=== PATIENT | male | born 1950 | race Caucasian/White ===

== ENCOUNTER 2019-08-24 12:30 | Inpatient (IN) | payer MEDICARE ==
--- NOTE | 2019-08-30 17:55 | HP ---
HISTORY OF PRESENT ILLNESS: The patient is a 68-year-old male with a greater than 6-month history of progressive pain in the left knee, which began after building his house and being quite active, but no specific injury. He has had progressive pain despite restriction of activities and previous Synvisc injection. The pain is now interfering with day-to-day activities including walking, getting dressed, and sleeping. PAST MEDICAL HISTORY: The patient had open-heart surgery in 1995 and stent placement in 2003 and currently takes Plavix, which he has stopped 1 week prior to anticipated surgery. He is followed by Dr. Micheline Mar in [place]. He also has history of pulmonary hypertension, asthma, depression. 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 He is considering total ankle replacement in the future. He also does have type 2 diabetes. CURRENT MEDICATIONS: Include, 1. Albuterol. 2. Plavix. 3. Hydrocodone. 4. Lisinopril. 5. Lyrica. 6. Asmanex. 7. Lorazepam. 8. Metformin. 9. Ranexa. ALLERGIES: HE HAS NO KNOWN ALLERGIES. FAMILY HISTORY: Otherwise unremarkable. SOCIAL HISTORY: Otherwise unremarkable. REVIEW OF SYSTEMS: Otherwise unremarkable. PHYSICAL EXAMINATION: GENERAL: Healthy heavyset male. HEENT: Unremarkable. NECK: Supple. CHEST: Clear. HEART: Regular rate and rhythm. ABDOMEN: Soft, nontender. RECTAL: Deferred. GENITAL: Deferred. EXTREMITIES: Pertinent findings the left knee, there is puffiness but no definite effusion. There is moderate varus. There is tenderness and crepitus over the medial joint line. Range of motion is 0 to 115 degrees. There is a left antalgic gait. No palpable distal pulses. NEUROVASCULAR: Intact. DIAGNOSTIC STUDIES: X-rays of the left knee reveal [id number] collapse medially. IMPRESSION: 1. Degenerative arthritis of left knee. 2. Atherosclerotic cardiovascular disease. 3. Hypertension. 4. Adult onset diabetes. PLAN: Left total knee replacement. The nature of the surgery, length of recovery, potential complications such as infection, loss of motion, incomplete relief, delayed wound healing, neurovascular injury, thromboembolic phenomena, possible transfusion, need for revision have been discussed in detail. Job ID: [id number]
[2019-08-31 09:23] VITALS: BMI 42.2
[2019-09-04] MEDS ORDERED: Sodium Chloride 0.9% 100 ML ONE (05:54)
[2019-09-04] MEDS ORDERED: Tranexamic Acid 1,000 MG/10 ML VIAL ONE ×2 (05:54→09:08)
[2019-09-04] MEDS ORDERED: Midazolam HCl 2 mg/2 ml Vial ONE (06:20)
[2019-09-04] MEDS ORDERED: Lidocaine 1% (PF) 30 ML VIAL ONE (06:20)
[2019-09-04] MEDS ORDERED: Fentanyl 100 MCG/2 ML VIAL ONE ×4 (06:20→10:16)
[2019-09-04] MEDS ORDERED: Ropivacaine 0.2% HCl/PF 20 ML ONE (06:20)
[2019-09-04] MEDS ORDERED: Lidocaine 1% w/Epinephrine 1:100K 20 ML VIAL ONE (06:45)
[2019-09-04] MEDS ORDERED: Bupivacaine/Epinephrine 0.25% 30 ML VIAL ONE (06:45)
[2019-09-04] MEDS ORDERED: Promethazine HCl 25 MG/ML VIAL IM PRN ×2 (07:10→08:17)
[2019-09-04] MEDS ORDERED: Ropivacaine HCl/PF 250 ML in Premix Bag 1 BAG NERVE BLCK SCH (07:10)
[2019-09-04] MEDS ORDERED: traMADol HCl 50 MG TAB PO PRN ×3 (07:10→09:12)
[2019-09-04] MEDS ORDERED: Ondansetron PF 4 MG/2 ML Vial IVP PRN ×2 (07:10→09:12)
[2019-09-04] MEDS ORDERED: Zolpidem Tartrate 5 MG TAB PO PRN ×2 (07:10→09:12)
[2019-09-04] MEDS ORDERED: Fentanyl 100 MCG/2 ML VIAL IV PRN (07:10)
[2019-09-04] MEDS ORDERED: Promethazine HCl 25 MG/ML VIAL SLOW IVP PRN ×2 (08:17→09:12)
[2019-09-04] MEDS ORDERED: Ondansetron HCl/PF 4 MG/2 ML Vial IVP PRN (08:17)
[2019-09-04] MEDS ORDERED: Fentanyl 100 MCG/2 ML VIAL SLOW IVP PRN ×2 (09:12)
[2019-09-04] MEDS ORDERED: Acetaminophen 325 MG TAB PO PRN (09:12)
[2019-09-04] MEDS ORDERED: PROVENTIL INHALER 6.7 G (200 INHALATIONS) INH PRN (09:12)
[2019-09-04] MEDS ORDERED: HYDROcodone/Acetaminophen 10/325 mg Tablet PO PRN ×2 (09:12)
[2019-09-04] MEDS ORDERED: Tranexamic Acid 1,000 MG in Sodium Chloride 0.9% 100 ML IVPB SCH ×2 (09:12→09:15)
[2019-09-04] MEDS ORDERED: Nitroglycerin 0.4 MG TAB (25 Tab Bottle) SL PRN (09:12)
[2019-09-04] MEDS ORDERED: diphenhydrAMINE 25 MG CAP PO PRN (09:12)
--- NOTE | 2019-09-04 09:56 | RAD ---
Exam:2 views left knee HISTORY: Arthroplasty COMPARISON: None FINDINGS: 2 views left knee compatible with a total left knee arthroplasty. No malalignment. Expected postoperative changes in the soft tissues. IMPRESSION: Findings compatible with left knee arthroplasty.
[2019-09-04] MEDS ORDERED: Ketorolac Tromethamine 30 MG/ML VIAL IVP SCH ×2 (12:00)
--- NOTE | 2019-09-04 12:35 | OP ---
DATE OF PROCEDURE: 09/04/2019 HEAD SAMPLER: Eliane Veronica PA-C PREOPERATIVE DIAGNOSIS: Degenerative arthritis, left knee. POSTOPERATIVE DIAGNOSIS: Degenerative arthritis, left knee. PROCEDURE PERFORMED: Left total knee replacement with computer-assisted navigation with cemented [place] [employer] components (#7 femoral component, #7 primary tibial baseplate with 11 mm CS plastic insert, and A35 all-plastic patellar component). ANESTHESIA: General plus adductor canal and sciatic nerve blocks. DESCRIPTION OF PROCEDURE: After satisfactory anesthesia was induced in supine position, sequential compression device was placed on the nonoperative leg throughout the procedure. The left leg was then prepped and draped in routine sterile fashion. The leg was elevated and exsanguinated with an Esmarch bandage and the tourniquet inflated to 300 mmHg. A gently curved medial parapatellar incision was made, carried down through the subcutaneous tissues. Bleeding points were controlled with Bovie cautery. Medial parapatellar arthrotomy was performed. Patella was dislocated laterally and portion of the fat pad were excised for exposure. There was marked degenerative arthritis of the knee especially medially with large areas of exposed bone. Meniscal remnants and osteophytes were removed. Using the appropriate guides and the [employer] pinless navigation system, the distal femoral and proximal tibial articular surfaces were excised with an oscillating saw. They accept the trial components. It was felt that #7 femoral component and #7 primary tibial baseplate with 11 mm CS plastic insert gave appropriate size, fit, stability, and correction of the preoperative deformity. The patellar articular surface was excised to accept an all-plastic A35 patellar component. There was good range of motion and good patellar tracking. The trial components were removed. The knee was copiously irrigated with pulsatile lavage and the bony surfaces thoroughly cleaned and dried. The permanent components were then cemented in a single stage using one package of cement premixed with 1 g of tobramycin powder. Excess cement was removed. There was again good fit and stability of the components. The knee was again copiously irrigated. The medial retinaculum and quadriceps mechanism was closed with interrupted #2 Vicryl and a running #2 Quill. The skin was infiltrated with 30 mL of 0.25% Marcaine with epinephrine. Subcutaneous tissues were closed with a running 0 Quill suture and the skin closed with running subcuticular 3-0 Monoderm and SurgiSeal skin adhesive. A sterile bulky compressive dressing was applied. The tourniquet deflated for 77 minutes. The foot promptly pinked up. Sequential compression device was applied to his operated leg. He was awakened, taken to the recovery room in stable condition. There were no apparent intraoperative complications. The estimated blood loss was less than 100 mL. Job ID: [id number]
[2019-09-04] MEDS ORDERED: Ropivacaine 0.5% HCl/PF (150 MG/30 ML VIAL) ONE (14:17)
[2019-09-04] MEDS ORDERED: Ondansetron PF 4 MG/2 ML Vial ONE (14:28)
[2019-09-04] MEDS ORDERED: Ketorolac Tromethamine 30 MG/ML VIAL ONE (14:28)
[2019-09-04] MEDS ORDERED: PROPOFOL 200 MG/20 ML VIAL ONE (14:28)
[2019-09-04] MEDS ORDERED: Lidocaine 1% PF 5 ML VIAL ONE (14:28)
--- NOTE | 2019-09-04 14:59 | PDOC.HOSPP ---
- Subjective Encounter Date: 09/04/19 Encounter Time: 14:45 Subjective: Consult for medical mgmt s/p L TKR today. Hx of DM, HTN, CAD and Asthma. No new complaints currently. Ambulated with PT short distance. No CP, SOB or pain. Reviewed all hx, labs, EKG's, radiology. - Objective Vital Signs & Weight: Vital Signs (12 hours) Temp Pulse Resp BP Pulse Ox 09/04/19 11:10 97.0 F L 59 L 20 146/74 H 97 Weight Weight 320 lb Additional Labs: Laboratory Tests 08/31/19 13:03 Sodium 138 Potassium 3.6 Chloride 98 Carbon Dioxide 27 Anion Gap 17 BUN 13 Creatinine 0.89 Estimated GFR (MDRD) 85 Glucose 253 H Calcium 9.4 EKG Reviewed by me: Yes (NSR, no acute changes) - Exam General Appearance: NAD, awake alert Eye: PERRL, anicteric sclera ENT: normocephalic atraumatic, no oropharyngeal lesions Neck: supple, symmetric, no JVD, no thyromegaly, no lymphadenopathy Heart: RRR, no murmur, no gallops, no rubs, normal peripheral pulses Respiratory: CTAB, no wheezes, no rales, no ronchi, normal chest expansion Gastrointestinal: soft, non-tender, non-distended, normal bowel sounds Extremities - other findings: L knee with surgical dressing in place, + edema Skin: normal turgor Neurological: cranial nerve grossly intact, no new deficit Musculoskeletal: normal tone, normal strength Psychiatric: normal affect, A&O x 3 Hosp A/P (1) HTN (hypertension) Code(s): I10 - ESSENTIAL (PRIMARY) HYPERTENSION Status: Chronic Qualifiers: Hypertension type: essential hypertension Qualified Code(s): I10 - Essential (primary) hypertension Plan: Resume home BP regimen, titrate to optimal response (2) Diabetes mellitus type II, uncontrolled Code(s): E11.65 - TYPE 2 DIABETES MELLITUS WITH HYPERGLYCEMIA Status: Chronic Plan: Add ISS, resume home DM regimen, serial Accuchecks, ADA (3) CAD (coronary artery disease) Code(s): I25.10 - ATHSCL HEART DISEASE OF [place] CORONARY ARTERY W/O ANG PCTRS Status: Chronic Plan: Chronic and stable, resume Plavix, Ranexa (4) Asthma Code(s): J45.909 - UNSPECIFIED ASTHMA, UNCOMPLICATED Status: Chronic Qualifiers: Asthma severity: moderate Plan: Continue home Albuterol, Singulair (5) Status post total left knee replacement Code(s): Z96.652 - PRESENCE OF LEFT ARTIFICIAL KNEE JOINT Status: Acute Plan: Pain control, DVT ppx, OOB with PT, ? inpt rehab - Plan plan discussed w/ family, continue antibiotics, PT/OT, long term care social worker, incentive spirometry, out of bed/ambulate, DVT proph w/SCDs Stable currently Continue home BP regimen Add ISS, serial accuchecks OOB/PT Incentive spirometry DVT ppx AM lab: CBC Thank you for the consult. Will continue to follow with primary service.
[2019-09-04] MEDS ORDERED: Dextrose 5% in Water 1,000 ML IV PRN (15:03)
[2019-09-04] MEDS ORDERED: Dextrose 50% Abboject 50 ML SYRINGE SLOW IVP PRN (15:03)
[2019-09-04] MEDS ORDERED: HumaLOG 300 UNITS/3 ML VIAL SC PRN (15:03)
[2019-09-04] MEDS: Ketorolac Tromethamine 30 MG/ML VIAL IVP SCH ×2 (15:22→21:05)
[2019-09-04] MEDS: Sodium Chloride 0.9% 1,000 ML IV SCH (15:22)
[2019-09-04] MEDS: CEFAZOLIN 2 GM in Premix Bag 1 BAG IVPB SCH ×2 (15:23→23:46)
[2019-09-04] MEDS: HumaLOG 300 UNITS/3 ML VIAL SC PRN (17:06)
[2019-09-04] MEDS: HYDROcodone/Acetaminophen 10/325 mg Tablet PO PRN (18:22)
[2019-09-04] MEDS: Pregabalin 50 MG CAP PO SCH (21:03)
[2019-09-04] MEDS: Ezetimibe 10 MG TAB PO SCH (21:04)
[2019-09-04] MEDS: Atorvastatin Calcium 40 MG TAB PO SCH (21:04)
[2019-09-04] MEDS: Aspirin 81 mg Enteric Coated Tablet PO SCH (21:04)
[2019-09-04] MEDS: Alogliptin 25 MG TAB PO SCH (21:04)
[2019-09-04] MEDS: metFORMIN XR 500 MG TAB PO SCH (21:04)
[2019-09-05] MEDS: Ketorolac Tromethamine 30 MG/ML VIAL IVP SCH ×4 (03:01→20:42)
[2019-09-05] MEDS: Sodium Chloride 0.9% 1,000 ML IV SCH ×3 (04:40→17:08)
[2019-09-05 04:48] LABS: Hemoglobin 12.8 g/dL (14.0-18.0); Mean Corpuscular HGB CONC 33.7 g/dL (32.0-36.0); Mean Corpuscular Hemoglobin 33.2 pg (27.0-31.0); Mean Corpuscular Volume 98.5 fL (78.0-98.0); Mean Platelet Volume 8.5 fL (7.4-10.4); Platelet Count 149 thou/uL (130-400); RBC Distribution Width 12.3 % (11.5-14.5); Red Blood Cell (RBC) Count 3.85 mill/uL (4.70-6.10); White Blood Cell (WBC) Count 7.9 thou/uL (4.8-10.8)
[2019-09-05] MEDS: HumaLOG 300 UNITS/3 ML VIAL SC PRN (06:19)
[2019-09-05] MEDS: Pregabalin 50 MG CAP PO SCH ×2 (08:33→20:46)
[2019-09-05] MEDS: metFORMIN XR 500 MG TAB PO SCH ×2 (08:34→20:43)
[2019-09-05] MEDS: Alogliptin 25 MG TAB PO SCH ×2 (08:35→20:46)
[2019-09-05] MEDS: Furosemide 40 MG TAB PO SCH (08:35)
[2019-09-05] MEDS: Cholecalciferol (Vitamin D3) 400 UNITS TAB PO SCH (08:36)
[2019-09-05] MEDS: Senokot S 8.6-50 MG TAB PO SCH ×2 (08:36→20:43)
[2019-09-05] MEDS: Aspirin 81 mg Enteric Coated Tablet PO SCH ×2 (08:36→20:42)
[2019-09-05] MEDS: Lisinopril 5 MG TAB PO SCH (08:36)
[2019-09-05] MEDS: Montelukast Sodium 10 mg Tablet PO SCH (08:36)
[2019-09-05] MEDS: Multivitamin W/ Minerals 1 TAB PO SCH (08:37)
[2019-09-05] MEDS: HYDROcodone/Acetaminophen 10/325 mg Tablet PO PRN ×2 (10:55→17:16)
--- NOTE | 2019-09-05 13:14 | PDOC.HOSPP ---
- Subjective Encounter Date: 09/05/19 Encounter Time: 10:14 Subjective: 68 y/o male with Evangelina on CPAP, HTN, CAD and HLD being followed for medical mgt after L TKR. No complaqint. Ambulating with PT. - Objective Vital Signs & Weight: Vital Signs (12 hours) Temp Pulse Resp BP Pulse Ox 09/05/19 08:36 79 09/05/19 07:40 93 L 09/05/19 07:28 99.3 F 79 18 120/74 93 L 09/05/19 03:20 99.4 F 83 18 148/75 H 95 Weight Admit Weight 320 lb Weight 320 lb I&O: 09/04/19 09/05/19 09/06/19 06:59 06:59 06:59 Intake Total 1999 Balance 1999 Result Diagrams: 09/05/19 04:13 Additional Labs: Accuchecks 09/05/19 09/05/19 09/04/19 10:39 05:14 20:42 POC Glucose 171 H 167 H 165 H 09/04/19 16:59 POC Glucose 174 H Hospitalist ROS - Medication Medications: Active Medications Generic Name Dose Route Start Last Admin Trade Name Freq PRN Reason Stop Dose Admin Hydrocodone Bitart/Acetaminophen 1 tab 09/04/19 07:10 09/04/19 18:22 [place] 10/325 PO 1 tab Q4H PRN Administration Pain (1-3) Hydrocodone Bitart/Acetaminophen 2 tab 09/04/19 07:10 09/05/19 10:55 [place] 10/325 PO 2 tab Q4H PRN Administration PAIN (4-6) Alogliptin Benzoate 25 mg 09/04/19 21:00 09/05/19 08:35 Alogliptin PO 25 mg BID JOAN Administration Aspirin 81 mg 09/04/19 21:00 09/05/19 08:36 Ecotrin PO 81 mg BID JOAN Administration Atorvastatin Calcium 80 mg 09/04/19 21:00 09/04/19 21:04 Lipitor PO 80 mg HS JOAN Administration Cholecalciferol 400 units 09/05/19 09:00 09/05/19 08:36 Vitamin D PO 400 units DAILY JOAN Administration Ezetimibe 10 mg 09/04/19 21:00 09/04/19 21:04 Zetia PO 10 mg HS JOAN Administration Furosemide 40 mg 09/05/19 09:00 09/05/19 08:35 Lasix PO 40 mg QAM JOAN Administration Glipizide 10 mg 09/04/19 21:00 09/05/19 08:35 Glucotrol Xl PO 10 mg BID JOAN Administration Ropivacaine 250 ml/ Device 250 mls @ 0 mls/hr 09/04/19 07:10 09/05/19 11:15 NERVE BLCK 250 mls INF JOAN Administration As Directed Sodium Chloride 1,000 mls @ 100 mls/hr 09/04/19 09:12 09/05/19 06:42 Normal Saline 0.9% IV Not Given .Q10H JOAN Insulin Human Lispro 0 units 09/04/19 15:03 09/05/19 06:19 Humalog SC 2 unit .MODERATE SLIDING SC PRN Administration Moderate Correctional Scale Iron/Minerals/Multivitamins 1 tab 09/05/19 09:00 09/05/19 08:37 Theragran M PO 1 tab DAILY JOAN Administration Ketorolac Tromethamine 15 mg 09/04/19 15:00 09/05/19 08:29 Toradol IVP 09/06/19 09:01 15 mg 0300,0900,1500,2100 JOAN Administration Lisinopril 5 mg 09/05/19 09:00 09/05/19 08:36 Zestril PO 5 mg QAM JOAN Administration Metformin HCl 1,000 mg 09/04/19 21:00 09/05/19 08:34 Glucophage Xr PO 1,000 mg BID JOAN Administration Montelukast Sodium 10 mg 09/05/19 09:00 09/05/19 08:36 Singulair PO 10 mg QAM JOAN Administration Pregabalin 100 mg 09/04/19 21:00 09/05/19 08:33 Lyrica PO 100 mg BID JOAN Administration Ranolazine 500 mg 09/04/19 21:00 09/05/19 08:37 Ranexa PO 500 mg BID JOAN Administration Senna/Docusate Sodium 2 tab 09/05/19 09:00 09/05/19 08:36 Senokot S PO 2 tab BID JOAN Administration Sodium Chloride 10 ml 09/04/19 09:12 09/05/19 08:30 Flush - Normal Saline IVF 10 ml PRN PRN Administration Saline Flush - Exam General Appearance: awake alert General - other findings: obese Eye: anicteric sclera ENT: normocephalic atraumatic, moist mucosa Neck: supple, symmetric Heart: RRR Respiratory: no wheezes, no rales, no ronchi, normal chest expansion Gastrointestinal: soft, non-tender, non-distended, normal bowel sounds Gastrointestinal - other findings: obese Extremities: no cyanosis Extremities - other findings: trace to mild left leg edema. Left knee/leg in a splint Neurological: cranial nerve grossly intact, no focal deficits Psychiatric: normal affect, A&O x 3 Hosp A/P (1) Acute blood loss anemia Code(s): D62 - ACUTE POSTHEMORRHAGIC ANEMIA Status: Acute (2) CAD (coronary artery disease) Code(s): I25.10 - ATHSCL HEART DISEASE OF [place] CORONARY ARTERY W/O ANG PCTRS Status: Chronic (3) HLD (hyperlipidemia) Code(s): E78.5 - HYPERLIPIDEMIA, UNSPECIFIED Status: Acute (4) EVANGELINA on CPAP Code(s): G47.33 - OBSTRUCTIVE SLEEP APNEA (ADULT) (PEDIATRIC); Z99.89 - DEPENDENCE ON OTHER ENABLING MACHINES AND DEVICES Status: Acute (5) Morbid obesity with BMI of 40.0-44.9, adult Code(s): E66.01 - MORBID (SEVERE) OBESITY DUE TO EXCESS CALORIES; Z68.41 - BODY MASS INDEX (BMI) 40.0-44.9, ADULT Status: Acute (6) Status post total left knee replacement Code(s): Z96.652 - PRESENCE OF LEFT ARTIFICIAL KNEE JOINT Status: Acute (7) Asthma Code(s): J45.909 - UNSPECIFIED ASTHMA, UNCOMPLICATED Status: Chronic Qualifiers: Asthma severity: moderate (8) Diabetes mellitus type II, uncontrolled Code(s): E11.65 - TYPE 2 DIABETES MELLITUS WITH HYPERGLYCEMIA Status: Chronic (9) HTN (hypertension) Code(s): I10 - ESSENTIAL (PRIMARY) HYPERTENSION Status: Chronic Qualifiers: Hypertension type: essential hypertension Qualified Code(s): I10 - Essential (primary) hypertension - Plan Continue current medications. Get H/H and renal function in the am.
[2019-09-05] MEDS: Atorvastatin Calcium 40 MG TAB PO SCH (20:42)
[2019-09-05] MEDS: Ezetimibe 10 MG TAB PO SCH (20:42)
[2019-09-06] MEDS: Sodium Chloride 0.9% 1,000 ML IV SCH ×2 (00:07→11:30)
[2019-09-06] MEDS: HYDROcodone/Acetaminophen 10/325 mg Tablet PO PRN ×2 (03:33→12:06)
[2019-09-06] MEDS: Ketorolac Tromethamine 30 MG/ML VIAL IVP SCH ×2 (03:34→08:44)
[2019-09-06 04:31] LABS: Hemoglobin 12.6 g/dL (14.0-18.0)
[2019-09-06 04:50] LABS: Anion Gap 12 mmol/L (10-20); BUN (Urea Nitrogen) 10 mg/dL (8.4-25.7); Calc. Creatinine Clearance 181 mL/min (70-130); Calcium 8.7 mg/dL (7.8-10.44); Carbon Dioxide 26 mmol/L (23-31); Chloride 101 mmol/L (98-107); Estimated GFR-MDRD Greater than 90; Glucose 163 mg/dL (80-115); Potassium 3.6 mmol/L (3.5-5.1); Sodium 135 mmol/L (136-145)
[2019-09-06] MEDS: HumaLOG 300 UNITS/3 ML VIAL SC PRN ×2 (06:31→12:06)
[2019-09-06] MEDS: Pregabalin 50 MG CAP PO SCH (08:45)
[2019-09-06] MEDS: metFORMIN XR 500 MG TAB PO SCH (08:45)
[2019-09-06] MEDS: Senokot S 8.6-50 MG TAB PO SCH (08:46)
[2019-09-06] MEDS: Furosemide 40 MG TAB PO SCH (08:46)
[2019-09-06] MEDS: Montelukast Sodium 10 mg Tablet PO SCH (08:46)
[2019-09-06] MEDS: Aspirin 81 mg Enteric Coated Tablet PO SCH (08:47)
[2019-09-06] MEDS: Lisinopril 5 MG TAB PO SCH (08:47)
[2019-09-06] MEDS: Cholecalciferol (Vitamin D3) 400 UNITS TAB PO SCH (08:47)
[2019-09-06] MEDS: Multivitamin W/ Minerals 1 TAB PO SCH (08:47)
[2019-09-06] MEDS: Alogliptin 25 MG TAB PO SCH (08:48)
--- NOTE | 2019-09-06 14:22 | PDOC.HOSPP ---
- Subjective Encounter Date: 09/06/19 Encounter Time: 11:21 Subjective: 68 y/o male with Evangelina on CPAP, HTN, CAD and HLD being followed for medical mgt after L TKR. No new complaint - Objective Vital Signs & Weight: Vital Signs (12 hours) Temp Pulse Resp BP BP Pulse Ox 09/06/19 12:00 99.8 F H 80 24 H 147/75 H 93 L 09/06/19 08:47 77 149/71 H 09/06/19 07:55 98.1 F 77 18 107/68 96 09/06/19 03:15 99.8 F H 85 20 163/81 H 96 Weight Admit Weight 320 lb Weight 320 lb I&O: 09/05/19 09/06/19 09/07/19 06:59 06:59 06:59 Intake Total 1999 1220 386 Balance 1999 1220 386 Result Diagrams: 09/06/19 04:18 09/06/19 04:18 Additional Labs: Accuchecks 09/06/19 09/06/19 09/05/19 10:24 06:31 20:43 POC Glucose 158 H 178 H 137 H 09/05/19 15:59 POC Glucose 134 H Hospitalist ROS - Medication Medications: Active Medications Generic Name Dose Route Start Last Admin Trade Name Freq PRN Reason Stop Dose Admin Hydrocodone Bitart/Acetaminophen 1 tab 09/04/19 07:10 09/05/19 17:16 [place] 10/325 PO 1 tab Q4H PRN Administration Pain (1-3) Hydrocodone Bitart/Acetaminophen 2 tab 09/04/19 07:10 09/06/19 12:06 [place] 10/325 PO 2 tab Q4H PRN Administration PAIN (4-6) Alogliptin Benzoate 25 mg 09/04/19 21:00 09/06/19 08:48 Alogliptin PO 25 mg BID JOAN Administration Aspirin 81 mg 09/04/19 21:00 09/06/19 08:47 Ecotrin PO 81 mg BID JOAN Administration Atorvastatin Calcium 80 mg 09/04/19 21:00 09/05/19 20:42 Lipitor PO 80 mg HS JOAN Administration Cholecalciferol 400 units 09/05/19 09:00 09/06/19 08:47 Vitamin D PO 400 units DAILY JOAN Administration Ezetimibe 10 mg 09/04/19 21:00 09/05/19 20:42 Zetia PO 10 mg HS JOAN Administration Furosemide 40 mg 09/05/19 09:00 09/06/19 08:46 Lasix PO 40 mg QAM JOAN Administration Glipizide 10 mg 09/04/19 21:00 09/06/19 08:48 Glucotrol Xl PO 10 mg BID JOAN Administration Ropivacaine 250 ml/ Device 250 mls @ 0 mls/hr 09/04/19 07:10 09/05/19 11:15 NERVE BLCK 250 mls INF JOAN Administration As Directed Sodium Chloride 1,000 mls @ 100 mls/hr 09/04/19 09:12 09/06/19 11:30 Normal Saline 0.9% IV Not Given .Q10H JOAN Insulin Human Lispro 0 units 09/04/19 15:03 09/06/19 12:06 Humalog SC 2 unit .MODERATE SLIDING SC PRN Administration Moderate Correctional Scale Iron/Minerals/Multivitamins 1 tab 09/05/19 09:00 09/06/19 08:47 Theragran M PO 1 tab DAILY JOAN Administration Lisinopril 5 mg 09/05/19 09:00 09/06/19 08:47 Zestril PO 5 mg QAM JOAN Administration Metformin HCl 1,000 mg 09/04/19 21:00 09/06/19 08:45 Glucophage Xr PO 1,000 mg BID JOAN Administration Montelukast Sodium 10 mg 09/05/19 09:00 09/06/19 08:46 Singulair PO 10 mg QAM JOAN Administration Pregabalin 100 mg 09/04/19 21:00 09/06/19 08:45 Lyrica PO 100 mg BID JOAN Administration Ranolazine 500 mg 09/04/19 21:00 09/06/19 08:47 Ranexa PO 500 mg BID JOAN Administration Senna/Docusate Sodium 2 tab 09/05/19 09:00 09/06/19 08:46 Senokot S PO 2 tab BID JOAN Administration Sodium Chloride 10 ml 09/04/19 09:12 09/05/19 08:30 Flush - Normal Saline IVF 10 ml PRN PRN Administration Saline Flush - Exam General Appearance: awake alert General - other findings: obese Eye: PERRL, anicteric sclera ENT: normocephalic atraumatic Neck: supple, no JVD Heart: RRR Respiratory: no wheezes, no rales, no ronchi, normal chest expansion Gastrointestinal: soft, non-tender, non-distended, normal bowel sounds Gastrointestinal - other findings: obese Extremities: no edema Extremities - other findings: left knee dressing noted Neurological: cranial nerve grossly intact, no focal deficits Psychiatric: normal affect, A&O x 3 Hosp A/P (1) Acute blood loss anemia Code(s): D62 - ACUTE POSTHEMORRHAGIC ANEMIA Status: Acute (2) CAD (coronary artery disease) Code(s): I25.10 - ATHSCL HEART DISEASE OF [place] CORONARY ARTERY W/O ANG PCTRS Status: Chronic (3) HLD (hyperlipidemia) Code(s): E78.5 - HYPERLIPIDEMIA, UNSPECIFIED Status: Acute (4) EVANGELINA on CPAP Code(s): G47.33 - OBSTRUCTIVE SLEEP APNEA (ADULT) (PEDIATRIC); Z99.89 - DEPENDENCE ON OTHER ENABLING MACHINES AND DEVICES Status: Acute (5) Morbid obesity with BMI of 40.0-44.9, adult Code(s): E66.01 - MORBID (SEVERE) OBESITY DUE TO EXCESS CALORIES; Z68.41 - BODY MASS INDEX (BMI) 40.0-44.9, ADULT Status: Acute (6) Status post total left knee replacement Code(s): Z96.652 - PRESENCE OF LEFT ARTIFICIAL KNEE JOINT Status: Acute (7) Asthma Code(s): J45.909 - UNSPECIFIED ASTHMA, UNCOMPLICATED Status: Chronic Qualifiers: Asthma severity: moderate (8) Diabetes mellitus type II, uncontrolled Code(s): E11.65 - TYPE 2 DIABETES MELLITUS WITH HYPERGLYCEMIA Status: Chronic (9) HTN (hypertension) Code(s): I10 - ESSENTIAL (PRIMARY) HYPERTENSION Status: Chronic Qualifiers: Hypertension type: essential hypertension Qualified Code(s): I10 - Essential (primary) hypertension - Plan Continue current medications. Can be discharged from medical point of view.
[2019-09-06 15:04] VITALS: BP 133/74; TEMP 99.2
--- NOTE | 2019-09-07 13:42 | DIS ---
DATE OF ADMISSION: 09/04/2019 DATE OF DISCHARGE: 09/06/2019 This is Jimmy Avalos PA-C dictating a report for Karl Cuba MD. PREOPERATIVE DIAGNOSES: Left knee osteoarthritis/degenerative joint disease. POSTOPERATIVE DIAGNOSES: Left knee osteoarthritis/degenerative joint disease. PROCEDURE PERFORMED: The patient underwent left total knee replacement. HOSPITAL COURSE: Hospital stay was unremarkable. He was admitted to [address], where he worked with staff, Physical Therapy, Occupational Therapy, and progressed quite well. By postop day 2, he are ready to discharge home. DISCHARGE CONDITION: Home/stable. DISPOSITION: Also would include home health, home PT. FOLLOWUP: Follow up would be in 2 to 4 weeks or sooner if there are problems and/or concerns. DISCHARGE MEDICATIONS: Given with usage instructions. Job ID: [id number]
== END 2019-09-06 14:50 | disposition home health service (06) | DRG 470 ==
LOC: SJJU 09-04 05:26
PROVIDERS: ADMIT Orthopaedic Surgery; ATTEND Orthopaedic Surgery
PROC: 0SRD0J9 Replacement of Left Knee Joint with Synthetic Substitute, Cemented, Open Approach (ICD-10-PCS; principal; 2019-09-04)
PROC: 8E0YXBZ Computer Assisted Procedure of Lower Extremity (ICD-10-PCS; 2019-09-04)
DX: M17.12 Unilateral primary osteoarthritis, left knee (principal); D62 Acute posthemorrhagic anemia; Z68.41 Body mass index [BMI] 40.0-44.9, adult; I27.20 Pulmonary hypertension, unspecified; F32.9 Major depressive disorder, single episode, unspecified; M19.171 Post-traumatic osteoarthritis, right ankle and foot; E11.9 Type 2 diabetes mellitus without complications; E78.5 Hyperlipidemia, unspecified; I10 Essential (primary) hypertension; G47.33 Obstructive sleep apnea (adult) (pediatric); J45.40 Moderate persistent asthma, uncomplicated; E66.01 Morbid (severe) obesity due to excess calories; I25.10 Atherosclerotic heart disease of native coronary artery without angina pectoris; Z98.42 Cataract extraction status, left eye; Z98.41 Cataract extraction status, right eye
CPT/HCPCS: 36415; 36416; 80048; 85014; 85018; 85027; C1713; C1776; J0690; J1885; J2001; J2250; J2405; J2704; J2795; J3010; J3370; J3490; J7050

== ENCOUNTER 2019-08-31 09:01 | Outpatient (CLI) | payer MEDICARE ==
[2019-08-31 14:02] LABS: #Basophils 0.1 thou/uL (0.0-0.2); #Eosinphils 0.1 thou/uL (0.0-0.7); #Lymphocytes 2.6 thou/uL (1.20-3.40); #Monocytes 0.5 thou/uL (0.11-0.59); %Basophils 0.8 % (0.0-1.0); %Eosinophils 1.3 % (0.0-10.0); %Lymphocytes 35.1 % (21.0-51.0); %Monocytes 7.4 % (0.0-10.0); %Neutrophils 55.3 % (42.0-75.0); Hemoglobin 15.9 g/dL (14.0-18.0); Mean Corpuscular HGB CONC 33.3 g/dL (32.0-36.0); Mean Corpuscular Hemoglobin 32.8 pg (27.0-31.0); Mean Corpuscular Volume 98.6 fL (78.0-98.0); Mean Platelet Volume 8.9 fL (7.4-10.4); Platelet Count 190 thou/uL (130-400); RBC Distribution Width 12.5 % (11.5-14.5); Red Blood Cell (RBC) Count 4.84 mill/uL (4.70-6.10); White Blood Cell (WBC) Count 7.3 thou/uL (4.8-10.8)
[2019-08-31 14:11] LABS: INR-International Normal Ratio 0.9; Prothrombin Time 12.6 SEC (12.0-14.7)
[2019-08-31 14:12] LABS: Bacteria/HPF None Seen HPF (None Seen); Bilirubin Negative (Negative); Blood, Urine Negative (Negative); Clarity Clear (Clear); Glucose, Urine (Dipstick) Greater than 1000 mg/dL (Negative); Leukocyte Negative Leu/uL (Negative); Nitrite Negative (Negative); Protein, Urine (Dipstick) Negative (Neg-Trace); RBC/HPF 0-3 HPF (0-3); Squamous Epithelial None Seen HPF (0-3); Urobilinogen Normal mg/dL (Less than 2); WBC/HPF 0-3 HPF (0-3)
[2019-08-31 14:40] LABS: Anion Gap 17 mmol/L (10-20); BUN (Urea Nitrogen) 13 mg/dL (8.4-25.7); Calc. Creatinine Clearance 0 mL/min (70-130); Calcium 9.4 mg/dL (7.8-10.44); Carbon Dioxide 27 mmol/L (23-31); Chloride 98 mmol/L (98-107); Estimated GFR-MDRD 85; Glucose 253 mg/dL (80-115); Potassium 3.6 mmol/L (3.5-5.1); Sodium 138 mmol/L (136-145)
== END 2019-08-31 09:02 | disposition home or self-care (01) ==
LOC: LABBT 09:01
PROVIDERS: ATTEND Orthopaedic Surgery
DX: Z01.818 Encounter for other preprocedural examination (principal); M17.12 Unilateral primary osteoarthritis, left knee
CPT/HCPCS: 80048; 81001; 85025; 85610; 87081; 93005; 93010